=== PATIENT | female | born 2000 | race Two or more races ===

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

== ENCOUNTER 2022-02-08 20:25 | Emergency (ER) | payer MEDICAID ==
[~2022-02-08] VITALS: Ht 154.9 cm; Wt 44.1 kg
[2022-02-08 22:24] LABS: Urine Bacteria FEW /hpf (None Seen); Urine Blood Negative /uL (Negative); Urine Mucus FEW (None Seen); Urine Specific Gravity 1.021 (1.001-1.035); Urine WBC 1 /hpf (0 - 5)
[2022-02-08 22:42] LABS: Basophils # (auto) 0.1 10 ^3/uL (0-0.2); Basophils % (auto) 0.9 % (0.0-2.0); Eosinophils # (auto) 0.1 10 ^3/uL (0-0.8); Eosinophils % (auto) 1.6 % (0.0-7.0); Hemoglobin 11.5 g/dL (12.2-16.2); Lymphocytes # (auto) 2.9 10 ^3/uL (0.4-5.4); Mean Corpuscular Hemoglobin 20.1 pg (28.0-32.0); Monocytes # (auto) 0.6 10 ^3/uL (0-1.3); Monocytes % (auto) 7.2 % (0.0-12.0); Neutrophils # (auto) 4.5 10 ^3/uL (1.6-8.6); Neutrophils % (auto) 54.3 % (37.0-80.0); Nucleated Red Blood Cells % 0.2 %; Red Blood Cells 5.69 10^6/uL (4.0-5.20); Red Cell Distribution Width 15.9 % (11.8-14.3); White Blood Cell 8.2 10^3/uL (4.4-10.8)
[2022-02-08 22:59] LABS: Albumin 4.6 g/dL (3.4-5.0); BUN/Creatinine Ratio 17.9; Calcium 9.5 mg/dL (8.5-10.1); Potassium 4.6 mmol/L (3.5-5.1)
[2022-02-08 23:02] LABS: Bilirubin, Total 0.6 mg/dL (0.2-1.0); Total Protein 7.8 g/dL (6.4-8.2)
[2022-02-09] MEDS ORDERED: HYDROcodone-ACET 5/325MG TAB PO ONE (01:45)
[2022-02-09 02:20] VITALS: BP 118/75
== END 2022-02-09 02:25 | disposition home or self-care (01) ==
LOC: ER 20:26
DX: K59.00 Constipation, unspecified (principal)
CPT/HCPCS: 36415; 74176; 76705; 80053; 81001; 83605; 83690; 84702; 85025

== ENCOUNTER 2023-05-23 17:43 | Emergency (ER) | payer MEDICAID ==
[~2023-05-23] VITALS: Ht 157.5 cm; Wt 60.5 kg
[2023-05-23] MEDS: KETOROLAC TROMETH 30 MG/ML 1ML VIAL IM ONE (21:19)
[2023-05-23 23:00] VITALS: BP 132/74; PULSE 98; RESP 16; TEMP 98; O2SAT 98
== END 2023-05-23 23:18 | disposition home or self-care (01) ==
LOC: EDBD 17:43 → ER 17:43
DX: R10.30 Lower abdominal pain, unspecified (principal); V43.52XA Car driver injured in collision with other type car in traffic accident, initial encounter; Y93.89 Activity, other specified; Y92.89 Other specified places as the place of occurrence of the external cause; Y99.8 Other external cause status
CPT/HCPCS: 74176; J1885